=== PATIENT | male | born 1970 ===

== ENCOUNTER 2016-12-28 15:36 | Emergency (ER) | payer MEDICAID ==
[2016-12-28] MEDS ORDERED: Sodium Chloride 0.9% 1,000 ML IV ONE (16:26)
[2016-12-29 00:54] LABS: ADD MANUAL DIFF? NO
[2016-12-29 09:43] LABS: INR 1.06 (0.93-1.08)
[2016-12-29 10:05] LABS: URINE APPEARANCE SL CLOUDY (CLEAR); URINE BILIRUBIN NEGATIVE (NEGATIVE); URINE BLOOD LARGE (NEGATIVE); URINE COLOR YELLOW (YELLOW); URINE GLUCOSE (UA) NEGATIVE (NEGATIVE); URINE KETONE TRACE mg/dL (NEGATIVE); URINE LEUKOCYTE ESTERASE TRACE Leu/uL (NEGATIVE); URINE PROTEIN 30 mg/dL (<30 mg/dL); URINE RBC 0 - 2 /hpf (0-2)
[2016-12-29 10:06] LABS: URINE BACTERIA MOD (NEG)
[2016-12-29 10:46] LABS: EOS % 0.2 % (1.5-5.0); GRAN # 5.53 (1.4-6.5); GRAN % 85.9 % (50.0-68.0); HEMATOCRIT 38.6 % (42.0-52.0); LYMPH # 0.7 (1.2-3.4); LYMPH % 10.6 % (22.0-35.0); MEAN CELL VOLUME 86.5 fL (80.0-105.0); MEAN CORPUSCULAR HEMOGLOBIN 29.8 pg (25.0-35.0); MEAN CORPUSCULAR HGB CONC 34.5 g/dl (31.0-37.0); MONO # 0.2 (0.1-0.6); MONO % 3.3 % (1.0-6.0); PLATELET COUNT 241 10^3/uL (120.0-450.0); RED CELL DISTRIBUTION WIDTH 14.7 % (11.5-14.5); WHITE BLOOD COUNT 6.4 10^3/ul (4.5-11.0)
[2016-12-29 14:10] LABS: ALB/GLOB RATIO 1.1 (1.1-1.8); ALKALINE PHOSPHATASE 58 U/L (38-133); ALT/SGPT 26 U/L (7-56); AST/SGOT 32 U/L (15-59); BILIRUBIN,TOTAL 0.7 mg/dL (0.2-1.3); BLOOD UREA NITROGEN 11 mg/dL (7-21); CALCIUM 8.5 mg/dL (8.4-10.5); CARBON DIOXIDE 27 mmol/L (21-33); CHLORIDE 102 mmol/L (98-107); GFR AFRICAN-AMERICAN > 60; GLUCOSE,RANDOM 94 mg/dL (70-110); MAGNESIUM 1.8 mg/dL (1.7-2.2); PHOSPHOROUS 2.8 mg/dL (2.5-4.5); POTASSIUM 3.3 mmol/L (3.6-5.0); SODIUM 138 mmol/L (132-148); TOTAL PROTEIN 8.1 g/dL (5.8-8.3)
[2017-01-01 03:37] LABS: VENOUS BLOOD GAS BASE EXCESS 0.6 mmol/L (0.0-2.0); VENOUS BLOOD PH 7.33 (7.32-7.43)
--- NOTE | 2017-01-04 22:57 | ED PDOC ---
ED Additional Note - Physician Additional Note Physician Additional Note: Pt returned phone call regarding urine culture. pt was discharged on macrobid; urine culture + group B strep. will transmit rx for PCN 500mg QID x 10 days to patients pharmacy; pt states she will f/u with pmd regarding urine culture as she is without any symptoms. i advised repeat urine culture. advised return if symptoms worsen,persist or if new symptoms develop.
== END 2016-12-28 23:01 | disposition home or self-care (01) ==
LOC: ED 15:36
DX: B34.9 Viral infection, unspecified (principal); N39.0 Urinary tract infection, site not specified

== ENCOUNTER 2018-05-06 15:05 | Observation (INO) | payer MEDICAID ==
[2018-05-06 16:36] LABS: BASO # 0.01 K/mm3 (0.0-2.0); BASO % 0.2 % (0.0-3.0); EOS # 0.1 (0.0-0.7); EOS % 1.7 % (1.5-5.0); GRAN # 3.32 (1.4-6.5); GRAN % 57.3 % (50.0-68.0); HEMOGLOBIN 13.6 g/dL (12.0-16.0); LYMPH % 35.1 % (22.0-35.0); MEAN CELL VOLUME 93.9 fl (80.0-105.0); MEAN CORPUSCULAR HEMOGLOBIN 31.9 pg (25.0-35.0); MEAN PLATELET VOLUME 9.7 fl (7.0-11.0); MONO # 0.3 (0.1-0.6); MONO % 5.7 % (1.0-6.0); RBC 4.26 10^6/uL (3.5-6.1); RED CELL DISTRIBUTION WIDTH 13.7 % (11.5-14.5); WHITE BLOOD COUNT 5.8 10^3/ul (4.5-11.0)
[2018-05-06 16:47] LABS: ALB/GLOB RATIO 1.3 (1.1-1.8); ALT/SGPT 27 U/L (7-56); AST/SGOT 25 U/L (14-36); BLOOD UREA NITROGEN 13 mg/dL (7-21); CALCIUM 9.5 mg/dL (8.4-10.5); GFR NON-AFRICAN AMERICAN > 60
[2018-05-06 16:58] LABS: TROPONIN I < 0.01 ng/mL
--- NOTE | 2018-05-06 17:36 | RAD ---
Date of service: 05/06/2018 HISTORY: r/o infiltrate COMPARISON: No prior. FINDINGS: LUNGS: The lungs are well inflated and clear. PLEURA: No significant pleural effusion identified, no pneumothorax apparent. CARDIOVASCULAR: Normal. OSSEOUS STRUCTURES: No significant abnormalities. VISUALIZED UPPER ABDOMEN: Normal. OTHER FINDINGS: None. IMPRESSION: No active pulmonary disease.
--- NOTE | 2018-05-06 19:52 | ED PDOC ---
Arrival/HPI - General Chief Complaint: Weakness/Neurological Deficit Time Seen by Provider: 05/06/18 16:00 Historian: Patient - History of Present Illness Narrative History of Present Illness (Text): 48 year old female was sent to the Emergency Department by Dr. Starks for evaluation of left-sided body numbness that occurred 3 days ago. Patient notes the numbness sensation lasted 20 minutes and then subsided. Patient is currently asymptomatic. Denies taking aspirin or other medications, chest pain, back pain, fever, nausea, vomiting and other associated symptoms. Time/Duration: < week (3 days ) Past Medical History - Provider Review Nursing Documentation Reviewed: Yes - Infectious Disease Hx of Infectious Diseases: None - Cardiac Hx Cardiac Disorders: No - Pulmonary Hx Respiratory Disorders: Yes Hx Asthma: Yes - Neurological Hx Neurological Disorder: No - HEENT Hx HEENT Disorder: No - Renal Hx Renal Disorder: No - Endocrine/Metabolic Hx Endocrine Disorders: No - Hematological/Oncological Hx Blood Disorders: No - Integumentary Hx Dermatological Disorder: No - Musculoskeletal/Rheumatological Hx Musculoskeletal Disorders: No - Gastrointestinal Hx Gastrointestinal Disorders: No - Genitourinary/Gynecological Hx Genitourinary Disorders: Yes Other/Comment: ovarian cysts - Psychiatric Hx Psychophysiologic Disorder: No Hx Substance Use: No - Surgical History Hx Section: Yes Hx Tubal Ligation: Yes - Anesthesia Hx Anesthesia: No Family/Social History - Physician Review Nursing Documentation Reviewed: Yes Family/Social History: Unknown Family HX Smoking Status: Unknown If Ever Smoked Hx Alcohol Use: Yes Frequency of alcohol use: Socially Hx Substance Use: No Allergies/Home Meds Allergies/Adverse Reactions: Allergies lactose Adverse Reaction (Verified 05/07/18 11:24) DIARRHEA egg yolk Adverse Reaction (Uncoded 05/07/18 07:58) diarrhea, abd pain Home Medications: Home Meds Medication Instructions Recorded Confirmed RX: Cholecalciferol (Vitamin D3) 50,000 unit PO QWK 03/15/17 05/07/18 [Vitamin D3] RX: Cyanocobalamin (Vitamin B-12) 2,500 mcg PO DAILY 03/15/17 03/15/17 [Vitamin B12] RX: Albuterol HFA [Ventolin HFA 90 2 puff IH [id number] 05/07/18 05/07/18 mcg/actuation (8 g)] RX: Ascorbic Acid [Vitamin C 500 600 mg PO BID 05/07/18 05/07/18 mg Tab] RX: Cyanocobalamin [Vitamin B12 1,000 mcg IM Q30D 05/07/18 05/07/18 1000 mcg/ml Inj] RX: Montelukast [Singulair] 10 mg PO HS 05/07/18 05/07/18 Review of Systems - Physician Review All systems were reviewed & negative as marked: Yes - Review of Systems Constitutional: absent: Fevers Gastrointestinal: absent: Abdominal Pain, Nausea, Vomiting Physical Exam Vital Signs Temp Pulse Resp BP Pulse Ox 05/06/18 22:48 98.6 F 61 18 137/50 L 99 05/06/18 20:07 97.8 F 66 18 126/57 L 98 05/06/18 17:07 97.8 F 61 18 108/78 99 05/06/18 15:54 97.8 F 68 17 132/75 97 05/06/18 15:51 97.8 F 68 17 132/75 97 Temperature: Afebrile Blood Pressure: Normal Pulse: Regular Respiratory Rate: Normal Appearance: Positive for: Well-Appearing, Non-Toxic, Comfortable Pain Distress: None Mental Status: Positive for: Alert and Oriented X 3 Finger Stick Blood Glucose: 78 - Systems Exam Head: Present: Atraumatic, Normocephalic Pupils: Present: PERRL Extroacular Muscles: Present: EOMI Mouth: Present: Moist Mucous Membranes Neck: Present: Normal Range of Motion Respiratory/Chest: Present: Other (NARD). No: Accessory Muscle Use Abdomen: No: Tenderness, Distention, Peritoneal Signs Upper Extremity: Present: Normal Inspection. No: Cyanosis, Edema Lower Extremity: Present: Normal Inspection. No: Edema Neurological: Present: GCS=15, CN II-XII Intact, Speech Normal Skin: Present: Warm, Dry, Normal Color. No: Rashes Psychiatric: Present: Alert, Oriented x 3, Normal Insight, Normal Concentration Medical Decision Making ED Course and Treatment: Plan: --EKG --CT head w/o contrast --Blood sent --X-ray Chest Update: Patient transferred to Dr. Salmeron. - Lab Interpretations Lab Results: 05/06/18 16:33 05/06/18 16:33 Lab Results 05/06/18 16:33: Sodium 139, Potassium 4.0, Chloride 102, Carbon Dioxide 30, Anion Gap 10, BUN 13, Creatinine 0.5 L, Est GFR ( Amer) > 60, Est GFR (Non-Af Amer) > 60, Random Glucose 86, Calcium 9.5, Magnesium 1.8, Total Bilirubin 0.3, AST 25, ALT 27, Alkaline Phosphatase 41, Lactate Dehydrogenase 430, Total Creatine Kinase 115, Troponin I < 0.01, Total Protein 7.0, Albumin 4.0, Globulin 3.0, Albumin/Globulin Ratio 1.3 05/06/18 16:33: WBC 5.8, RBC 4.26, Hgb 13.6, Hct 40.0, MCV 93.9, MCH 31.9, MCHC 34.0, RDW 13.7, Plt Count 240, MPV 9.7, Gran % 57.3, Lymph % (Auto) 35.1 H, [place] % (Auto) 5.7, Eos % (Auto) 1.7, Baso % (Auto) 0.2, Gran # 3.32, Lymph # (Auto) 2.0, [place] # (Auto) 0.3, Eos # (Auto) 0.1, Baso # (Auto) 0.01 05/06/18 15:51: POC Glucose (mg/dL) 78 - RAD Interpretation Narrative RAD Interpretations (Text): Chest X-ray FINDINGS: LUNGS: The lungs are well inflated and clear. PLEURA: No significant pleural effusion identified, no pneumothorax apparent. CARDIOVASCULAR: Normal. OSSEOUS STRUCTURES: No significant abnormalities. VISUALIZED UPPER ABDOMEN: Normal. OTHER FINDINGS: None. IMPRESSION: No active pulmonary disease. Radiology Orders: 05/06/18 16:00 HEAD W/O CONTRAST [CT] Stat CHEST PORTABLE [RAD] Stat - EKG Interpretation EKG Interpretation (Text): Normal axis Normal interval Rate: 62 bmp - Medication Orders Current Medication Orders: Acetaminophen (Tylenol 325mg Tab) 650 mg PO Q4H PRN PRN Reason: Pain, moderate (4-7) Last Admin: 05/08/18 04:19 Dose: 650 mg MAR Pain/Vitals Document 05/08/18 04:19 [facility] (Rec: 05/08/18 04:20 [facility] [id number]) Pain Reassessment Is This A Pain ReAssessment? Yes Sleep Is patient sleeping during reassessment? No Presence of Pain Presence of Pain Yes Pain Scale Used Protocol: PSCALES Pain Scale Used Numeric Location Description Acute Albuterol/Ipratropium (Duoneb 3 Mg/0.5 Mg (3 Ml) Ud) 3 ml IH [id number] PRN PRN Reason: Shortness of Breath Aspirin (Aspirin Chewable) 81 mg PO DAILY [facility] Last Admin: 05/08/18 10:28 Dose: 81 mg Atorvastatin Calcium (Lipitor) 10 mg PO DIN [facility] Last Admin: 05/07/18 17:16 Dose: 10 mg Docusate Sodium (Colace) 100 mg PO BID [facility] Last Admin: 05/08/18 10:28 Dose: 100 mg Last Bowel Movement Document 05/08/18 10:28 [facility] (Rec: 05/08/18 10:28 GG [id number]) Last Bowel Movement Last Bowel Movement 05/05/18 Montelukast Sodium (Singulair) 10 mg PO HS [facility] Last Admin: 05/07/18 21:28 Dose: 10 mg Pantoprazole Sodium (Protonix Ec Tab) 40 mg PO 0600 [facility] Last Admin: 05/08/18 05:15 Dose: 40 mg Discontinued Medications Albuterol/Ipratropium (Duoneb 3 Mg/0.5 Mg (3 Ml) Ud) 3 ml IH Q3H PRN PRN Reason: Wheezing Stop: 05/07/18 06:01 Aspirin (Aspirin) 325 mg PO ONCE STA Stop: 05/06/18 20:46 Last Admin: 05/06/18 21:40 Dose: 325 mg - Scribe Statement The provider has reviewed the documentation as recorded by the Scribe (Kitty Monaco) Provider Attestation: All medical record entries made by the Scribe were at my direction and personally dictated by me. I have reviewed the chart and agree that the record accurately reflects my personal performance of the history, physical exam, medical decision making, and the department course for this patient. I have also personally directed, reviewed, and agree with the discharge instructions and disposition. Disposition/Present on Arrival - Present on Arrival Any Indicators Present on Arrival: No History of DVT/PE: No History of Uncontrolled Diabetes: No Urinary Catheter: No History of Decub. Ulcer: No History Surgical Site Infection Following: None - Disposition Have Diagnosis and Disposition been Completed?: Yes Diagnosis: TIA (transient ischemic attack) Disposition: HOSPITALIZED Disposition Time: 19:00 Patient Problems: Current Active Problems Problem Status Onset TIA (transient ischemic attack) Acute Condition: STABLE
--- NOTE | 2018-05-06 20:42 | ED PDOC ---
Physical Exam - Physical Exam Narrative Physical Exam (Text): 05/06/18 19:10 Case was endorsed to me from pending CT scan Head to complete the evaluation.Pt. referred to ED by PMD for evaluation of Left sided facial/arm numbness past 3 days.No weakness.No chest pain or SOB.Previously with transient headache. Vital Signs Temp Pulse Resp BP Pulse Ox 05/06/18 20:07 97.8 F 66 18 126/57 L 98 05/06/18 17:07 97.8 F 61 18 108/78 99 05/06/18 15:54 97.8 F 68 17 132/75 97 05/06/18 15:51 97.8 F 68 17 132/75 97 Temperature: Afebrile Blood Pressure: Normal Pulse: Regular Respiratory Rate: Normal Appearance: Positive for: Well-Appearing, Non-Toxic, Comfortable Pain Distress: None Mental Status: Positive for: Alert and Oriented X 3 Finger Stick Blood Glucose: 78 - Systems Exam Head: Present: Atraumatic, Normocephalic Pupils: Present: PERRL Extroacular Muscles: Present: EOMI Conjunctiva: Present: Normal Mouth: Present: Moist Mucous Membranes Neck: Present: Normal Range of Motion Respiratory/Chest: Present: Clear to Auscultation, Good Air Exchange. No: Respiratory Distress, Accessory Muscle Use Cardiovascular: Present: Regular Rate and Rhythm, Normal S1, S2. No: Murmurs Abdomen: No: Tenderness, Distention, Peritoneal Signs Back: Present: Normal Inspection Upper Extremity: Present: Normal Inspection. No: Cyanosis, Edema Lower Extremity: Present: Normal Inspection. No: Edema Neurological: Present: GCS=15, CN II-XII Intact, Speech Normal, Motor Func Grossly Intact, Normal Sensory Function Skin: Present: Warm, Dry, Normal Color. No: Rashes Psychiatric: Present: Alert, Oriented x 3, Normal Insight, Normal Concentration Medical Decision Making ED Course and Treatment: 05/06/18 21:00 Case was discussed with medical affairs leader and house MD John.Pt. accepted to the hospitalist service. - Lab Interpretations Lab Results: 05/06/18 16:33 05/06/18 16:33 Lab Results 05/06/18 16:33: Sodium 139, Potassium 4.0, Chloride 102, Carbon Dioxide 30, Anion Gap 10, BUN 13, Creatinine 0.5 L, Est GFR ( Amer) > 60, Est GFR (Non-Af Amer) > 60, Random Glucose 86, Calcium 9.5, Magnesium 1.8, Total Bilirubin 0.3, AST 25, ALT 27, Alkaline Phosphatase 41, Lactate Dehydrogenase 430, Total Creatine Kinase 115, Troponin I < 0.01, Total Protein 7.0, Albumin 4.0, Globulin 3.0, Albumin/Globulin Ratio 1.3 05/06/18 16:33: WBC 5.8, RBC 4.26, Hgb 13.6, Hct 40.0, MCV 93.9, MCH 31.9, MCHC 34.0, RDW 13.7, Plt Count 240, MPV 9.7, Gran % 57.3, Lymph % (Auto) 35.1 H, [place] % (Auto) 5.7, Eos % (Auto) 1.7, Baso % (Auto) 0.2, Gran # 3.32, Lymph # (Auto) 2.0, [place] # (Auto) 0.3, Eos # (Auto) 0.1, Baso # (Auto) 0.01 05/06/18 15:51: POC Glucose (mg/dL) 78 - RAD Interpretation Radiology Orders: 05/06/18 16:00 HEAD W/O CONTRAST [CT] Stat CHEST PORTABLE [RAD] Stat - Medication Orders Current Medication Orders: Discontinued Medications Aspirin (Aspirin) 325 mg PO ONCE STA Stop: 05/06/18 20:46 Disposition/Present on Arrival - Present on Arrival Any Indicators Present on Arrival: No History of DVT/PE: No History of Uncontrolled Diabetes: No Urinary Catheter: No History of Decub. Ulcer: No History Surgical Site Infection Following: None - Disposition Have Diagnosis and Disposition been Completed?: Yes Diagnosis: TIA (transient ischemic attack) Disposition: HOSPITALIZED Disposition Time: 20:57 Patient Plan: Observation Patient Problems: Current Active Problems Problem Status Onset TIA (transient ischemic attack) Acute Condition: STABLE NIHSS Scale ([place]) Time Performed: 19:40 - How Severe is the [place] 24 hours post onset S/S Level of Consciousness: 0=Alert LOC to Questions: 0=Both comments correct LOC to commands: 0=Obeys both correctly Best Gaze: 0=Normal Visual: 0=No visual loss Facial: 0=Normal Motor Arm - Left: 0=No drift Motor Arm - Right: 0=No drift Motor Leg - Left: 0=No drift Motor Leg - Right: 0=No drift Limb Ataxia: 0=Absent Sensory: 0=Normal Best Language: 0=No aphasia Dysarthia: 0=Normal articulation Extinction & Inattention (Neglect): 0=Normal, no object Score: 0 Risk Level: No Stroke Risk
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
[2018-05-06] MEDS ORDERED: Albuterol-Ipratrop 3 mg / 0.5 (3 ml) UD IH PRN (23:20)
[2018-05-07 01:01] VITALS: BMI 25.8
[2018-05-07] MEDS ORDERED: Pantoprazole 40 mg EC Tab PO SCH (06:00)
[2018-05-07 07:11] LABS: BASO # 0.02 K/mm3 (0.0-2.0); BASO % 0.3 % (0.0-3.0); EOS # 0.2 (0.0-0.7); EOS % 2.6 % (1.5-5.0); GRAN # 3.57 (1.4-6.5); GRAN % 51.9 % (50.0-68.0); HEMOGLOBIN 14.1 g/dL (12.0-16.0); LYMPH # 2.7 (1.2-3.4); LYMPH % 39.2 % (22.0-35.0); MEAN CELL VOLUME 94.2 fl (80.0-105.0); MEAN CORPUSCULAR HEMOGLOBIN 31.7 pg (25.0-35.0); MEAN CORPUSCULAR HGB CONC 33.7 g/dl (31.0-37.0); MEAN PLATELET VOLUME 9.9 fl (7.0-11.0); MONO # 0.4 (0.1-0.6); RBC 4.45 10^6/uL (3.5-6.1); RED CELL DISTRIBUTION WIDTH 13.5 % (11.5-14.5); WHITE BLOOD COUNT 6.9 10^3/ul (4.5-11.0)
[2018-05-07 07:18] LABS: ALB/GLOB RATIO 1.2 (1.1-1.8); ALBUMIN 3.9 g/dL (3.0-4.8); ALT/SGPT 21 U/L (7-56); AST/SGOT 28 U/L (14-36); BLOOD UREA NITROGEN 13 mg/dL (7-21); GFR NON-AFRICAN AMERICAN > 60; HDL CHOLESTEROL 46 mg/dL (29-60)
[2018-05-07 07:29] LABS: LDL CHOLESTEROL 84 mg/dL (0-129)
--- NOTE | 2018-05-07 08:24 | CT ---
Date of service: 05/06/2018 PROCEDURE: CT HEAD WITHOUT CONTRAST. HISTORY: left-sided weakness 3 days ago COMPARISON: Not available TECHNIQUE: Axial computed tomography images were obtained through the head/brain without intravenous contrast. Radiation dose: Total exam DLP = mGy-cm. This CT exam was performed using one or more of the following dose reduction techniques: Automated exposure control, adjustment of the mA and/or kV according to patient size, and/or use of iterative reconstruction technique. FINDINGS: HEMORRHAGE: No intracranial hemorrhage. BRAIN: No mass effect or edema. No atrophy or chronic microvascular ischemic changes. VENTRICLES: Unremarkable. No hydrocephalus. CALVARIUM: Unremarkable. PARANASAL SINUSES: Mild chronic ethmoid sinusitis. MASTOID AIR CELLS: Unremarkable as visualized. No inflammatory changes. OTHER FINDINGS: None. IMPRESSION: No intracranial mass, hemorrhage or evidence of acute infarct. Mild chronic ethmoid sinusitis. The preliminary findings for this examination were reported by [facility] at 8:30 p.m. on 05/06/2018. There is concurrence of this report with the preliminary findings.
--- NOTE | 2018-05-07 09:32 | CARD ---
APPROVED REPORT Date of service: 05/06/2018 EKG Measurement Heart [id number] <Conclusion> Normal sinus rhythm Normal ECG
[2018-05-07 13:04] LABS: FOLATE 15.5 ng/mL
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
[2018-05-07] MEDS ORDERED: Albuterol-Ipratrop 3 mg / 0.5 (3 ml) UD IH PRN (14:19)
--- NOTE | 2018-05-07 14:37 | CP.PCM.PN ---
<MirellaArslan - Last Filed: 05/07/18 17:26> Subjective - Date & Time of Evaluation Date of Evaluation: 05/07/18 Time of Evaluation: 14:32 - Subjective Subjective: Arslan Vu PGY1 Progress note for Dr. Guzman Pt was examined at bedside this morning. She complained of a headache but denied any numbness/tingling anywhere. She denied any chest pain, abdominal pain, nausea, vomiting, shortness of breath, dysuria, or diarrhea. Objective - Vital Signs/Intake and Output Vital Signs (last 24 hours): Temp Pulse Resp BP Pulse Ox 97.5 F L 69 20 108/73 96 05/07/18 09:13 05/07/18 09:13 05/07/18 09:13 05/07/18 09:13 05/07/18 09:13 - Medications Medications: Current Medications Acetaminophen (Tylenol 325mg Tab) 650 mg PO Q4H PRN PRN Reason: Pain, moderate (4-7) Last Admin: 05/07/18 14:19 Dose: 650 mg Albuterol/Ipratropium (Duoneb 3 Mg/0.5 Mg (3 Ml) Ud) 3 ml IH [id number] PRN PRN Reason: Shortness of Breath Aspirin (Aspirin Chewable) 81 mg PO DAILY [facility] Last Admin: 05/07/18 14:20 Dose: 81 mg Montelukast Sodium (Singulair) 10 mg PO HS RAMA Pantoprazole Sodium (Protonix Ec Tab) 40 mg PO 0600 [facility] - Labs Labs: 05/07/18 06:30 05/07/18 06:30 - Constitutional Appears: Well, No Acute Distress - Head Exam Head Exam: ATRAUMATIC, NORMOCEPHALIC - Eye Exam Eye Exam: EOMI Pupil Exam: NORMAL ACCOMODATION - ENT Exam ENT Exam: Mucous Membranes Moist - Neck Exam Neck Exam: Normal Inspection - Respiratory Exam Respiratory Exam: Clear to Ausculation Bilateral, NORMAL BREATHING PATTERN. absent: Wheezes - Cardiovascular Exam Cardiovascular Exam: REGULAR RHYTHM, +S1, +S2 - GI/Abdominal Exam GI & Abdominal Exam: Soft, Normal Bowel Sounds. absent: Tenderness - Extremities Exam Extremities Exam: Normal Inspection. absent: Pedal Edema - Neurological Exam Neurological Exam: Alert, Awake Additional comments: CN II-, VIII-XII intact. Sensory defecit on L side of face. Motor strength in upper extremities intact 5/5 b/l - Psychiatric Exam Psychiatric exam: Normal Affect, Normal Mood Assessment and Plan - Assessment and Plan (Free Text) Assessment: 48 yo female with a PMH of asthma, migraines, PNA, anemia, who presents to the ED after being sent to [facility] [place] after a visit to her primary care physician for parethesias. Plan: Left-sided Parethesias - secondary to TIA vs. atypical migraine - pt reports headache - Head CT: mild sinusitis, no other acute findings - EKG: NSR - neuro checks q6 - start ASA 81 daily - start lipitor 10mg - f/u Brain MRI w/ and w/o contrast - Neuro consulted, Dr. Valladares- f/u recs Headache - Tylenol PRN - monitor History of Anemia - Hb 14.1 - normocytic, normochromic - follow w/ outpt rollout manager Dr Kramer upon d/c History of Hyperlipidemia - total cholesterol: 165 - LDL: 84 - HDL: 46 - T - start lipitor 10mg Asthma - advair (call pharmacy in the morning to verify dose), montelukast - duonebs PRN Ppx - SCD - protonix - HHD Pt seen, examined, assessment and plan discussed with Dr. Guzman <Rubi Guzman - Last Filed: 05/07/18 18:27> Objective - Vital Signs/Intake and Output Vital Signs (last 24 hours): Temp Pulse Resp BP Pulse Ox 98.2 F 72 20 95/55 L 95 05/07/18 16:57 05/07/18 16:57 05/07/18 16:57 05/07/18 16:57 05/07/18 16:57 - Medications Medications: Current Medications Acetaminophen (Tylenol 325mg Tab) 650 mg PO Q4H PRN PRN Reason: Pain, moderate (4-7) Last Admin: 05/07/18 14:19 Dose: 650 mg Albuterol/Ipratropium (Duoneb 3 Mg/0.5 Mg (3 Ml) Ud) 3 ml IH [id number] PRN PRN Reason: Shortness of Breath Aspirin (Aspirin Chewable) 81 mg PO DAILY [facility] Last Admin: 05/07/18 14:20 Dose: 81 mg Atorvastatin Calcium (Lipitor) 10 mg PO DIN [facility] Last Admin: 05/07/18 17:16 Dose: 10 mg Montelukast Sodium (Singulair) 10 mg PO HS [facility] Pantoprazole Sodium (Protonix Ec Tab) 40 mg PO 0600 [facility] - Labs Labs: 05/07/18 06:30 05/07/18 06:30 Attending/Attestation - Attestation I have personally seen and examined this patient.: Yes I have fully participated in the care of the patient.: Yes I have reviewed all pertinent clinical information, including history, physical exam and plan: Yes Notes (Text): 05/07/18 18:25 48 year old female with past medical history of asthma and migraines who presented with left sided parethesias. Admitted to rule out TIA. CT head showed mild sinusitis; no acute findings. Patient is on aspirin and statin. LDL was 84. Neurology and PT evaluation were appreciated. MRI brain is ordered. Consider d/c planning if MRI is negative. Rubi Guzman MD Hospitalist.
[2018-05-08 06:41] LABS: BASO # 0.01 K/mm3 (0.0-2.0); BASO % 0.1 % (0.0-3.0); EOS # 0.1 (0.0-0.7); EOS % 1.7 % (1.5-5.0); GRAN # 3.72 (1.4-6.5); GRAN % 52.8 % (50.0-68.0); HEMOGLOBIN 14.5 g/dL (12.0-16.0); LYMPH # 2.8 (1.2-3.4); MEAN CORPUSCULAR HEMOGLOBIN 32.2 pg (25.0-35.0); MEAN CORPUSCULAR HGB CONC 34.3 g/dl (31.0-37.0); MONO # 0.4 (0.1-0.6); MONO % 5.4 % (1.0-6.0); RBC 4.5 10^6/uL (3.5-6.1); RED CELL DISTRIBUTION WIDTH 13.4 % (11.5-14.5); WHITE BLOOD COUNT 7.1 10^3/ul (4.5-11.0)
[2018-05-08] MEDS ORDERED: Gadodiamide 287 MG/ML VIAL (15ML) IV ONE (08:18)
[2018-05-08 08:40] VITALS: O2SAT 97
--- NOTE | 2018-05-08 09:23 | MRI ---
Date of service: 05/08/2018 PROCEDURE: MRI BRAIN WITH AND WITHOUT CONTRAST HISTORY: r/o stroke COMPARISON: None available. TECHNIQUE: Multiplanar, multisequence MR images of the brain were obtained with and without intravenous contrast enhancement. 15 cc of Omniscan was utilized for intravenous contrast. FINDINGS: HEMORRHAGE: None DWI: No evidence of an acute or early subacute infarction. BRAIN PARENCHYMA: Intrinsic signal throughout the [place] and white matter structures above below the tentorium appears within normal limits including the brainstem. There is no mass effect, parenchymal edema or loss of the corticomedullary differentiation. Midline brain anatomy appears within normal limits including the corpus callosum, brainstem and craniocervical junction. There is no suspicious extra-axial fluid collection identified. 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 ENHANCEMENT: No abnormal intracranial enhancement. VENTRICLES: Unremarkable. No hydrocephalus. CRANIUM: Unremarkable. ORBITS: Grossly unremarkable. PARANASAL SINUSES/MASTOIDS: Clear VASCULAR SYSTEM: Skull base flow voids intact. OTHER FINDINGS: None . IMPRESSION: 3 mm pineal cyst with the remainder the examination unremarkable. No abnormal intracranial enhancement identified. No evidence of brain infarction.
--- NOTE | 2018-05-08 16:50 | CP.PCM.DIS ---
<Arslan Vu - Last Filed: 05/08/18 16:46> Provider - Provider Date of Admission: 05/06/18 20:53 Attending physician: Rubi Guzman MD Consults: Neurology, Dr. Valladares Time Spent in preparation of Discharge (in minutes): 70 Hospital Course - Lab Results Lab Results: Most Recent Lab Values WBC 7.1 10^3/ul (4.5-11.0) 05/08/18 06:00 RBC 4.50 10^6/uL (3.5-6.1) 05/08/18 06:00 Hgb 14.5 g/dL (12.0-16.0) 05/08/18 06:00 Hct 42.3 % (36.0-48.0) 05/08/18 06:00 MCV 94.0 fl (80.0-105.0) 05/08/18 06:00 MCH 32.2 pg (25.0-35.0) 05/08/18 06:00 MCHC 34.3 g/dl (31.0-37.0) 05/08/18 06:00 RDW 13.4 % (11.5-14.5) 05/08/18 06:00 Plt Count 249 10^3/uL (120.0-450.0) 05/08/18 06:00 MPV 10.0 fl (7.0-11.0) 05/08/18 06:00 Gran % 52.8 % (50.0-68.0) 05/08/18 06:00 Lymph % (Auto) 40.0 % (22.0-35.0) H 05/08/18 06:00 Charlton % (Auto) 5.4 % (1.0-6.0) 05/08/18 06:00 Eos % (Auto) 1.7 % (1.5-5.0) 05/08/18 06:00 Baso % (Auto) 0.1 % (0.0-3.0) 05/08/18 06:00 Gran # 3.72 (1.4-6.5) 05/08/18 06:00 Lymph # (Auto) 2.8 (1.2-3.4) 05/08/18 06:00 Charlton # (Auto) 0.4 (0.1-0.6) 05/08/18 06:00 Eos # (Auto) 0.1 (0.0-0.7) 05/08/18 06:00 Baso # (Auto) 0.01 K/mm3 (0.0-2.0) 05/08/18 06:00 Sodium 139 mmol/L (132-148) 05/07/18 06:30 Potassium 3.9 mmol/L (3.6-5.0) 05/07/18 06:30 Chloride 104 mmol/L (98-107) 05/07/18 06:30 Carbon Dioxide 28 mmol/L (21-33) 05/07/18 06:30 Anion Gap 11 (10-20) 05/07/18 06:30 BUN 13 mg/dL (7-21) 05/07/18 06:30 Creatinine 0.6 mg/dl (0.7-1.2) L 05/07/18 06:30 Est GFR ( Amer) > 60 05/07/18 06:30 Est GFR (Non-Af Amer) > 60 05/07/18 06:30 POC Glucose (mg/dL) 78 mg/dL (65-110) 05/06/18 15:51 Random Glucose 92 mg/dL (70-110) 05/07/18 06:30 Calcium 9.0 mg/dL (8.4-10.5) 05/07/18 06:30 Phosphorus 4.5 mg/dL (2.5-4.5) 05/07/18 06:30 Magnesium 1.8 mg/dL (1.7-2.2) 05/07/18 06:30 Total Bilirubin 0.4 mg/dL (0.2-1.3) 05/07/18 06:30 AST 28 U/L (14-36) 05/07/18 06:30 ALT 21 U/L (7-56) 05/07/18 06:30 Alkaline Phosphatase 45 U/L (38-126) 05/07/18 06:30 Lactate Dehydrogenase 430 U/L (333-699) 05/06/18 16:33 Total Creatine Kinase 115 U/L (35-230) 05/06/18 16:33 Troponin I < 0.01 ng/mL 05/06/18 16:33 Total Protein 7.2 g/dL (5.8-8.3) 05/07/18 06:30 Albumin 3.9 g/dL (3.0-4.8) 05/07/18 06:30 Globulin 3.4 gm/dL 05/07/18 06:30 Albumin/Globulin Ratio 1.2 (1.1-1.8) 05/07/18 06:30 Triglycerides 86 mg/dL (35-160) 05/07/18 06:30 Cholesterol 165 mg/dL (130-200) 05/07/18 06:30 LDL Cholesterol Direct 84 mg/dL (0-129) 05/07/18 06:30 HDL Cholesterol 46 mg/dL (29-60) 05/07/18 06:30 Vitamin B12 654 pg/mL (239-931) 05/07/18 06:30 Folate 15.5 ng/mL 05/07/18 06:30 - Hospital Course Hospital Course: Upon Admission Pt is a 48 yo female with a PMH of asthma, migraines, PNA, anemia, vaginal bleeding, and lactose intolerance, who presents to the ED after being sent to [facility] [place] after a visit to her primary care physician Dr Starks. Pt states she felt tingling and numbness around her lips on Sunday (05-03-18) after getting off of work at around midnight. She states that she also felt mild numbness/ weakness in her left arm. This episode lasted about 5 mins. The next day on Sunday morning (05-04-18) she felt tired and lightheaded during the day, but denies having any numbness or weakness at that time. She went to work at 4pm and when she got off at midnight, she experienced a similar episode, this time only lasting about 1 min, after which symptoms resolved. On Sunday (05-05-18) she experienced a migraine headache, which is similar to ones she has had in the past. Pt states she has had some nausea over the past week, and has had some constipation. Pt admits to some blurry vision, which she attributes to not wearing her reading glasses. She also relates having some palpitations, which she attributes to drinking coffee. Pt denies any sick contacts recently. She denies vomiting, diarrhea, dysarthria, facial droop, gait disturbance, or paralysis. A 12 point ROS was obtained and added to the HPI where appropriate. Hospital Course Pt is a 48 yo female with a PMH of asthma, migraines, presenting with left sided facial numbness and left arm numbness was admitted to rule out TIA. Pt had an unremarkable neurologic exam. CT of the head was done int he ED and showed no mass, hemorrhage or acute infarct. Dr. Valladares-neurologist, was consulted. 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 There was no evidence of brain infarction. Pt was maintained on asprin and statin for HLD, tylenol PRN for mild headache. Pt reports no numbness, tingling, weakness during hospital stay and has no complaints now. Discharge Plan Pt will be discharged to home. Pt should follow up with PMD, Dr. Starks within 3-5 days of discharge from ambulatory clinic. Pt was instructed to also follow up with neurology, Dr. Valladares. Patient is to resume all home medications as mentioned in discharge instructions. Pt should return to the hospital if sxs return or worse. Patient understands plan as above and agrees. Discharge Exam - Head Exam Head Exam: ATRAUMATIC, NORMOCEPHALIC - Eye Exam Eye Exam: EOMI Pupil Exam: NORMAL ACCOMODATION - ENT Exam ENT Exam: Mucous Membranes Moist - Respiratory Exam Respiratory Exam: Clear to PA & Lateral, NORMAL BREATHING PATTERN - Cardiovascular Exam Cardiovascular Exam: REGULAR RHYTHM, +S1, +S2 - GI/Abdominal Exam GI & Abdominal Exam: Normal Bowel Sounds, Soft. absent: Tenderness - Extremities Exam Extremities exam: normal inspection - Neurological Exam Neurological exam: Alert, CN II-XII Intact, Oriented x3 - Psychiatric Exam Psychiatric exam: Depressed, Normal Affect Discharge Plan - Discharge Medications Prescriptions: Atorvastatin [Lipitor] 10 mg PO DIN #14 tab - Follow Up Plan Condition: STABLE Disposition: HOME/ ROUTINE Additional Instructions: Please follow up with your PMD, Dr. Starks within one week after discharge. Please follow up with neurologist, Dr. Valladares, within one week after discharge. Please take your home medications as prescribed. Please take your newly prescribed medication, lipitor, as prescribed. If symptoms worsen, please return to ED. <Rubi Guzman - Last Filed: 05/08/18 18:17> Provider - Provider Date of Admission: 05/06/18 20:53 Attending physician: Rubi Guzman MD Hospital Course - Lab Results Lab Results: Most Recent Lab Values WBC 7.1 10^3/ul (4.5-11.0) 05/08/18 06:00 RBC 4.50 10^6/uL (3.5-6.1) 05/08/18 06:00 Hgb 14.5 g/dL (12.0-16.0) 05/08/18 06:00 Hct 42.3 % (36.0-48.0) 05/08/18 06:00 MCV 94.0 fl (80.0-105.0) 05/08/18 06:00 MCH 32.2 pg (25.0-35.0) 05/08/18 06:00 MCHC 34.3 g/dl (31.0-37.0) 05/08/18 06:00 RDW 13.4 % (11.5-14.5) 05/08/18 06:00 Plt Count 249 10^3/uL (120.0-450.0) 05/08/18 06:00 MPV 10.0 fl (7.0-11.0) 05/08/18 06:00 Gran % 52.8 % (50.0-68.0) 05/08/18 06:00 Lymph % (Auto) 40.0 % (22.0-35.0) H 05/08/18 06:00 Charlton % (Auto) 5.4 % (1.0-6.0) 05/08/18 06:00 Eos % (Auto) 1.7 % (1.5-5.0) 05/08/18 06:00 Baso % (Auto) 0.1 % (0.0-3.0) 05/08/18 06:00 Gran # 3.72 (1.4-6.5) 05/08/18 06:00 Lymph # (Auto) 2.8 (1.2-3.4) 05/08/18 06:00 Charlton # (Auto) 0.4 (0.1-0.6) 05/08/18 06:00 Eos # (Auto) 0.1 (0.0-0.7) 05/08/18 06:00 Baso # (Auto) 0.01 K/mm3 (0.0-2.0) 05/08/18 06:00 Sodium 139 mmol/L (132-148) 05/07/18 06:30 Potassium 3.9 mmol/L (3.6-5.0) 05/07/18 06:30 Chloride 104 mmol/L (98-107) 05/07/18 06:30 Carbon Dioxide 28 mmol/L (21-33) 05/07/18 06:30 Anion Gap 11 (10-20) 05/07/18 06:30 BUN 13 mg/dL (7-21) 05/07/18 06:30 Creatinine 0.6 mg/dl (0.7-1.2) L 05/07/18 06:30 Est GFR ( Amer) > 60 05/07/18 06:30 Est GFR (Non-Af Amer) > 60 05/07/18 06:30 POC Glucose (mg/dL) 78 mg/dL (65-110) 05/06/18 15:51 Random Glucose 92 mg/dL (70-110) 05/07/18 06:30 Calcium 9.0 mg/dL (8.4-10.5) 05/07/18 06:30 Phosphorus 4.5 mg/dL (2.5-4.5) 05/07/18 06:30 Magnesium 1.8 mg/dL (1.7-2.2) 05/07/18 06:30 Total Bilirubin 0.4 mg/dL (0.2-1.3) 05/07/18 06:30 AST 28 U/L (14-36) 05/07/18 06:30 ALT 21 U/L (7-56) 05/07/18 06:30 Alkaline Phosphatase 45 U/L (38-126) 05/07/18 06:30 Lactate Dehydrogenase 430 U/L (333-699) 05/06/18 16:33 Total Creatine Kinase 115 U/L (35-230) 05/06/18 16:33 Troponin I < 0.01 ng/mL 05/06/18 16:33 Total Protein 7.2 g/dL (5.8-8.3) 05/07/18 06:30 Albumin 3.9 g/dL (3.0-4.8) 05/07/18 06:30 Globulin 3.4 gm/dL 05/07/18 06:30 Albumin/Globulin Ratio 1.2 (1.1-1.8) 05/07/18 06:30 Triglycerides 86 mg/dL (35-160) 05/07/18 06:30 Cholesterol 165 mg/dL (130-200) 05/07/18 06:30 LDL Cholesterol Direct 84 mg/dL (0-129) 05/07/18 06:30 HDL Cholesterol 46 mg/dL (29-60) 05/07/18 06:30 Vitamin B12 654 pg/mL (239-931) 05/07/18 06:30 Folate 15.5 ng/mL 05/07/18 06:30 Attending/Attestation - Attestation I have personally seen and examined this patient.: Yes I have fully participated in the care of the patient.: Yes I have reviewed all pertinent clinical information, including history, physical exam and plan: Yes Notes (Text): 05/08/18 18:15 48 year old female with past medical history of asthma and migraines who presented with left sided parethesias. CT head showed mild sinusitis; no acute findings. MRI brain showed 3 mm pineal; no acute other findings. Patient is on aspirin and statin. Symptoms resolved. Patient cleared by neurology. Patient is discharged home to follow up with pmd. Follow up with neurology. Continue with aspirin and statin. Rubi Guzman MD Hospitalist.
[2018-05-08 17:00] VITALS: BP 107/67; PULSE 74; RESP 19; TEMP 97.5
--- NOTE | 2018-05-10 12:29 | PQF ---
PROVIDER RESPONSE TEXT: Mild, intermittent REVIEWER QUERY TEXT: Asthma Specificity and Type Asthma is documented in the Medical Record. Please specify the type and severity of asthma and indic ate if this is associated with exacerbation or status asthmaticus. Such as: -- Mild intermittent -- Mild persistent -- Moderate persistent -- Severe persistent -- Exercise induced bronchospasm -- Cough variant asthma -- Other, please specify The patient's Clinical Indicators include: Please see below. Thank you. Query created by: Destini Adams on 05/10/2018 11:49 AM Electronically signed by: Rubi Guzman MD 05/10/2018 12:27 PM
== END 2018-05-08 18:59 | disposition home or self-care (01) ==
LOC: EDSEX → ED 15:05 → ERH 20:53 → 3RSO 05-07 00:18
PROVIDERS: ADMIT Hospitalist; ATTEND Internal Medicine
DX: G45.9 Transient cerebral ischemic attack, unspecified (principal); E73.9 Lactose intolerance, unspecified; G43.909 Migraine, unspecified, not intractable, without status migrainosus; Z98.891 History of uterine scar from previous surgery; Z98.51 Tubal ligation status; Z87.11 Personal history of peptic ulcer disease; Z87.01 Personal history of pneumonia (recurrent); Z91.012 Allergy to eggs; J45.20 Mild intermittent asthma, uncomplicated
CPT/HCPCS: 36415; 70450; 70553; 71045; 80053; 80061; 82550; 82607; 82746; 82948; 83615; 83735; 84100; 84484; 85025; 93005; 97116; 97161; 97530; 99285; A9579; G0378; G8978; G8979; G8980

== ENCOUNTER 2018-05-13 14:32 | Emergency (ER) | payer MEDICAID ==
[2018-05-13 15:10] VITALS: BMI 25.7
[2018-05-13 15:19] VITALS: TEMP 97.9; O2SAT 100
--- NOTE | 2018-05-13 15:28 | ED PDOC ---
Arrival/HPI - General Chief Complaint: Palpitations Time Seen by Provider: 05/13/18 15:08 Historian: Patient - History of Present Illness Narrative History of Present Illness (Text): 05/13/18 15:28 48 year old female, with past medical history of anemia, asthma and migraines, presents to the Emergency department complaining of palpitations and left sided sharp chest pain since past week. Patient informs intermittent non-radiating pain localized to the left side of her chest brought on by usually laying down. Patient presented to Dr. Starks with the presented symptoms, who subsequently referred her to the Emergency department for further evaluation. Patient was recently admitted to the hospital for possible TIA and was later discharged home with a neurology follow-up after positive finding of 3mm pineal cyst in MRI. Pat ient denies any other somatic complaints. Patient denies any fever, chills, nausea, vomiting, diarrhea, abdominal pain, shortness of breath, neck pain, back pain, headache, dizziness or any other complaints. PMD: Dr. Starks Time/Duration: 1 week Symptom Onset: Gradual Symptom Course: Unchanged Quality: Aching Activities at Onset: Light Context: Other (Referred by Dr. Starks) Past Medical History - Provider Review Nursing Documentation Reviewed: Yes - Infectious Disease Hx of Infectious Diseases: None - Cardiac Hx Cardiac Disorders: No - Pulmonary Hx Respiratory Disorders: Yes Hx Asthma: Yes - Neurological Hx Neurological Disorder: No - HEENT Hx HEENT Disorder: No - Renal Hx Renal Disorder: No - Endocrine/Metabolic Hx Endocrine Disorders: No - Hematological/Oncological Hx Blood Disorders: No - Integumentary Hx Dermatological Disorder: No - Musculoskeletal/Rheumatological Hx Musculoskeletal Disorders: No - Gastrointestinal Hx Gastrointestinal Disorders: No - Genitourinary/Gynecological Hx Genitourinary Disorders: Yes Other/Comment: ovarian cysts - Psychiatric Hx Psychophysiologic Disorder: No Hx Substance Use: No - Surgical History Hx Section: Yes Hx Tubal Ligation: Yes - Anesthesia Hx Anesthesia: No Family/Social History - Physician Review Nursing Documentation Reviewed: Yes Family/Social History: Unknown Family HX Smoking Status: Unknown If Ever Smoked Hx Alcohol Use: Yes Hx Substance Use: No Allergies/Home Meds Allergies/Adverse Reactions: Allergies lactose Adverse Reaction (Verified 05/13/18 15:28) DIARRHEA egg yolk Adverse Reaction (Uncoded 05/13/18 15:28) diarrhea, abd pain Home Medications: Home Meds Medication Instructions Recorded Confirmed RX: Cholecalciferol (Vitamin D3) 50,000 unit PO QWK 03/15/17 05/07/18 [Vitamin D3] RX: Cyanocobalamin (Vitamin B-12) 2,500 mcg PO DAILY 03/15/17 03/15/17 [Vitamin B12] RX: Albuterol HFA [Ventolin HFA 90 2 puff IH [id number] 05/07/18 05/07/18 mcg/actuation (8 g)] RX: Ascorbic Acid [Vitamin C 500 600 mg PO BID 05/07/18 05/07/18 mg Tab] RX: Cyanocobalamin [Vitamin B12 1,000 mcg IM Q30D 05/07/18 05/07/18 1000 mcg/ml Inj] RX: Montelukast [Singulair] 10 mg PO HS 05/07/18 05/07/18 Review of Systems - Physician Review All systems were reviewed & negative as marked: Yes - Review of Systems Constitutional: absent: Fevers Respiratory: absent: SOB, Cough Cardiovascular: Chest Pain, Palpitations Gastrointestinal: absent: Abdominal Pain, Diarrhea, Nausea, Vomiting Musculoskeletal: absent: Back Pain, Neck Pain Neurological: absent: Headache, Dizziness Physical Exam Vital Signs Reviewed: Yes Vital Signs Temp Pulse Resp BP Pulse Ox 05/13/18 15:10 97.9 F 77 17 127/86 100 Temperature: Afebrile Blood Pressure: Normal Pulse: Regular Respiratory Rate: Normal Appearance: Positive for: Well-Appearing, Non-Toxic, Comfortable Pain Distress: None Mental Status: Positive for: Alert and Oriented X 3 - Systems Exam Head: Present: Atraumatic, Normocephalic Pupils: Present: PERRL Extroacular Muscles: Present: EOMI Conjunctiva: Present: Normal Mouth: Present: Moist Mucous Membranes Neck: Present: Normal Range of Motion Respiratory/Chest: Present: Clear to Auscultation, Good Air Exchange. No: Respiratory Distress, Accessory Muscle Use Cardiovascular: Present: Regular Rate and Rhythm, Normal S1, S2. No: Murmurs Abdomen: No: Tenderness, Distention, Peritoneal Signs Back: Present: Normal Inspection Upper Extremity: Present: Normal Inspection. No: Cyanosis, Edema Lower Extremity: Present: Normal Inspection. No: Edema Neurological: Present: GCS=15, CN II-XII Intact, Speech Normal Skin: Present: Warm, Dry, Normal Color. No: Rashes Psychiatric: Present: Alert, Oriented x 3, Normal Insight, Normal Concentration Medical Decision Making ED Course and Treatment: 05/13/18 15:27 Impression: 48 year old female presents to the Emergency department complaining of intermittent palpitations and chest pain since 1 week. Differential Diagnosis included but are not limited to: chest pain r/o ACS Plan: -- EKG -- Labs -- Chest X-ray -- Urinalysis, hcG -- Reassess and disposition Prior Visits: Notes and results from previous visits were reviewed. Progress Notes: 05/13/18 15:10 EKG: Ordered, reviewed, and independently interpreted the EKG. Rate : 67 BPM Rhythm : NSR Interpretation : No ST-segment elevations or depressions, no T-wave inversions, normal intervals. 05/15/18 17:45 atypcoal cp x 1 weke. no ekg chagnes trop neg. cxr neg. pt comfortable in er. pmd ivonne. agrees to outpt f/u - RAD Interpretation Radiology Orders: 05/13/18 15:27 CHEST PORTABLE [RAD] Stat - Scribe Statement The provider has reviewed the documentation as recorded by the Scribe Jyotsna Gómez. All medical record entries made by the Scribe were at my direction and personally dictated by me. I have reviewed the chart and agree that the record accurately reflects my personal performance of the history, physical exam, medical decision making, and the department course for this patient. I have also personally directed, reviewed, and agree with the discharge instructions and disposition. Disposition/Present on Arrival - Present on Arrival Any Indicators Present on Arrival: No History of DVT/PE: No History of Uncontrolled Diabetes: No Urinary Catheter: No History of Decub. Ulcer: No History Surgical Site Infection Following: None - Disposition Have Diagnosis and Disposition been Completed?: Yes Diagnosis: Chest pain Disposition: HOME/ ROUTINE Disposition Time: 06:00 Condition: STABLE Discharge Instructions (ExitCare): Chest Pain, Palpitations, Chest Pain (ED) Additional Instructions: folllow up with specialist. return to er with worsening symptoms or concerns. Referrals: Megan Starks MD [Primary Care Provider] - Follow up with primary Sary Rascon MD [Staff Provider] - Follow up with primary Forms: [facility] (Turkmen)
[2018-05-13 16:03] LABS: BASO # 0.02 K/mm3 (0.0-2.0); BASO % 0.3 % (0.0-3.0); EOS # 0.1 (0.0-0.7); EOS % 1.2 % (1.5-5.0); GRAN # 4.79 (1.4-6.5); GRAN % 64.8 % (50.0-68.0); HEMOGLOBIN 13.7 g/dL (12.0-16.0); LYMPH # 2.1 (1.2-3.4); LYMPH % 28.3 % (22.0-35.0); MEAN CORPUSCULAR HEMOGLOBIN 31.8 pg (25.0-35.0); MEAN CORPUSCULAR HGB CONC 34.2 g/dl (31.0-37.0); MEAN PLATELET VOLUME 9.8 fl (7.0-11.0); MONO # 0.4 (0.1-0.6); MONO % 5.4 % (1.0-6.0); RBC 4.31 10^6/uL (3.5-6.1); RED CELL DISTRIBUTION WIDTH 13.2 % (11.5-14.5); WHITE BLOOD COUNT 7.4 10^3/ul (4.5-11.0)
[2018-05-13 16:07] LABS: ALB/GLOB RATIO 1.2 (1.1-1.8); ALT/SGPT 24 U/L (7-56); AST/SGOT 28 U/L (14-36); BLOOD UREA NITROGEN 18 mg/dL (7-21); CALCIUM 8.7 mg/dL (8.4-10.5); GFR NON-AFRICAN AMERICAN > 60
[2018-05-13 16:18] LABS: TROPONIN I < 0.01 ng/mL
[2018-05-13 16:19] LABS: INR 1.02; PROTHROMBIN TIME 11.6 SECONDS (9.4-12.5)
[2018-05-13 16:22] LABS: D DIMER < 200 ng/mlDDU (0-243)
[2018-05-13 17:10] VITALS: RESP 18
[2018-05-13 17:26] LABS: URINE APPEARANCE CLEAR (CLEAR); URINE BILIRUBIN NEGATIVE (NEGATIVE); URINE BLOOD TRACE-INTACT (NEGATIVE); URINE COLOR YELLOW (YELLOW); URINE GLUCOSE (UA) NEGATIVE (NEGATIVE); URINE LEUKOCYTE ESTERASE NEGATIVE Leu/uL (NEGATIVE); URINE PROTEIN NEGATIVE mg/dL (<30 mg/dL); URINE UROBILINOGEN 0.2 E.U./dL (<1 E.U./dL)
[2018-05-13 17:27] LABS: HCG,QUALITATIVE URINE NEGATIVE (NEGATIVE)
[2018-05-13 17:29] LABS: URINE BACTERIA TRACE (NEG); URINE EPITHELIAL CELLS 0 - 2 /hpf (0-5); URINE RBC 0 - 2 /hpf (0-2); URINE WBC NEGATIVE /hpf (0-6)
[2018-05-13 17:45] VITALS: BP 138/73; PULSE 69
--- NOTE | 2018-05-13 18:22 | RAD ---
Date of service: 05/13/2018 HISTORY: Chest pain. COMPARISON: 05/06/2018. FINDINGS: LUNGS: No active pulmonary disease. PLEURA: No significant pleural effusion identified, no pneumothorax apparent. CARDIOVASCULAR: Normal. OSSEOUS STRUCTURES: No significant abnormalities. VISUALIZED UPPER ABDOMEN: Normal. OTHER FINDINGS: None. IMPRESSION: No active disease. No significant interval change compared to the prior examination(s). Concordant results with the preliminary interpretation rendered by the emergency department physician procedure.
--- NOTE | 2018-05-13 20:42 | CARD ---
APPROVED REPORT Date of service: 05/13/2018 EKG Measurement Heart [id number] <Conclusion> Normal sinus rhythm with sinus arrhythmia Normal ECG
== END 2018-05-13 18:12 | disposition home or self-care (01) ==
LOC: ED 14:32
DX: R07.9 Chest pain, unspecified (principal); J45.909 Unspecified asthma, uncomplicated; D64.9 Anemia, unspecified